=== PATIENT | female | born 1970 | race Caucasian/White ===

== ENCOUNTER 2022-01-15 08:06 | Emergency (ER) | payer SELFPAY ==
[~2022-01-15] VITALS: Ht 160 cm; Wt 55.0 kg
[2022-01-15 08:13] VITALS: BP 120/81
[2022-01-15] MEDS ORDERED: SUMATRIPTAN SUCCINATE 25MG TABLET PO ONE (08:45)
[2022-01-15] MEDS ORDERED: KETOROLAC 15MG/ML VIAL IM ONE (08:45)
[2022-01-15] MEDS ORDERED: DIPHENHYDRAMINE 50MG/ML VIAL IV ONE (10:45)
[2022-01-15] MEDS ORDERED: SODIUM CHLORIDE 0.9% 1,000 ML IV ONE (10:45)
[2022-01-15] MEDS ORDERED: METOCLOPRAMIDE HCL 10MG/2ML VIAL IV ONE (10:45)
== END 2022-01-15 12:29 | disposition home or self-care (01) ==
LOC: ER 08:06
DX: U07.1 COVID-19 (principal); R00.0 Tachycardia, unspecified
CPT/HCPCS: 70450; 81025; 87426; 87804; 96361; 96372; 96374; 96375; 99284; C9803; J1200; J1885; J2765; J7030

== ENCOUNTER 2023-02-22 13:24 | Emergency (ER) | payer BC, MEDICAID ==
[~2023-02-22] VITALS: Ht 160 cm; Wt 56.0 kg
[2023-02-22 13:51] VITALS: O2SAT 94
[2023-02-22 14:18] LABS: BASOPHILS % 0.5 % (0.0-2.0); EOSINOPHILS % 1.4 % (0.0-5.0); HEMOGLOBIN. 12.1 g/dL (12.0-16.0); LYMPHOCYTES % 12.1 % (20.0-50.0); MEAN CORPUSCULAR HEMOGLOBIN 29.3 pg (28.0-32.0); MEAN CORPUSCULAR VOLUME 89.6 fL (81.0-99.0); MEAN PLATELET VOLUME 9.9 fl (7.4-10.4); MONOCYTES % 4.8 % (2.0-8.0); NEUTROPHILS % 81.2 % (40.0-76.0); PLATELET 190 x1000/uL (130-400); RED BLOOD CELL COUNT 4.14 mill/uL (4.2-5.4); RED CELL DISTRIBUTION WIDTH 13.4 % (11.6-14.6)
[2023-02-22 14:26] LABS: CHLORIDE 114 mEq/L (98-107)
[2023-02-22] MEDS ORDERED: HYDROCODONE/ACETAMINOPHEN 10/325MG TABLET PO ONE (19:00)
[2023-02-22] MEDS ORDERED: TAMSULOSIN HCL 0.4MG SR CAPSULE PO ONE (19:00)
[2023-02-22] MEDS ORDERED: KETOROLAC 60MG/2ML VIAL IM ONE (19:00)
[2023-02-22] MEDS ORDERED: ACET-2708 MT (19:02)
[2023-02-22] MEDS ORDERED: TAMS-11 MT (19:02)
[2023-02-22] MEDS ORDERED: IBUP-2030 MT (19:02)
[2023-02-22] MEDS ORDERED: TAMSULOSIN HCL 0.4MG SR CAPSULE PO NR (19:45)
[2023-02-22 19:46] VITALS: BP 165/116
[2023-02-22 19:56] VITALS: PULSE 64; RESP 18; TEMP 98.9
[2023-02-22 20:02] LABS: CLARITY URINE CLEAR (CLEAR); COLOR URINE YELLOW (YELLOW); KETONES URINE 1+ (NEGATIVE); LEUKOCYTE ESTERASE URINE NEGATIVE (NEGATIVE); NITRITE URINE NEGATIVE (NEGATIVE); OCCULT BLOOD URINE NEGATIVE (NEGATIVE); PH URINE >=9.0 (4.5-8.0); PROTEIN URINE 2+ (NEGATIVE); SPECIFIC GRAVITY URINE 1.029 (1.005-1.030)
== END 2023-02-22 19:59 | disposition home or self-care (01) ==
LOC: ER 13:24
DX: N20.0 Calculus of kidney (principal); N13.30 Unspecified hydronephrosis
CPT/HCPCS: 80053; 81003; 81025; 85025; 36415; 74176; 96372; 99285; J1885; Z7610

== ENCOUNTER 2023-10-27 10:07 | Emergency (ER) | payer OTHER ==
[~2023-10-27] VITALS: Ht 160 cm; Wt 53.0 kg
[~2023-10-27 10:07] MED LIST: ACET-2708 MT; IBUP-2030 MT; TAMS-11 MT
[2023-10-27 10:11] VITALS: O2SAT 100
[2023-10-27 10:41] LABS: EOSINOPHILS % 1.3 % (0.0-5.0); HEMATOCRIT. 37.6 % (36.0-48.0); HEMOGLOBIN. 12.4 g/dL (12.0-16.0); LYMPHOCYTES % 18.2 % (20.0-50.0); MEAN CORPUSCULAR HEMOGLOBIN 29.5 pg (28.0-32.0); MEAN CORPUSCULAR HGB CONC 33.1 g/dL (31.0-37.0); MEAN CORPUSCULAR VOLUME 89.2 fL (81.0-99.0); MEAN PLATELET VOLUME 9.7 fl (7.4-10.4); MONOCYTES % 3.6 % (2.0-8.0); NEUTROPHILS % 75.9 % (40.0-76.0); PLATELET 214 x1000/uL (130-400); RED BLOOD CELL COUNT 4.22 mill/uL (4.2-5.4); RED CELL DISTRIBUTION WIDTH 13.3 % (11.6-14.6)
[2023-10-27 11:00] LABS: ALANINE AMINOTRANSFERASE 12 IU/L (10-49); ALBUMIN 4.6 g/dL (3.2-4.8); ASPARTATE AMINOTRANSFERASE 22 IU/L (<34); BILIRUBIN TOTAL 1.7 mg/dL (0.1-1.0); CALCIUM 8.9 mg/dL (8.7-10.4); CARBON DIOXIDE 18 mEq/L (21-32); CHLORIDE 98 mEq/L (98-107); CREATININE 0.9 mg/dL (0.6-1.0); GLUCOSE 99 mg/dL (70-105); POTASSIUM 3.8 mEq/L (3.5-5.1); PROTEIN TOTAL 7.2 g/dL (6.0-8.3); SODIUM 133 mEq/L (136-145); TROPONIN I HIGH SENSITIVITY 5 ng/L (3.0-34); UREA NITROGEN BLOOD 16 mg/dL (9-23)
[2023-10-27 14:22] VITALS: BP 112/68; PULSE 84; RESP 15; TEMP 98.2
== END 2023-10-27 14:30 | disposition home or self-care (01) ==
LOC: ER 10:07
DX: R00.2 Palpitations (principal); F12.10 Cannabis abuse, uncomplicated
CPT/HCPCS: 80053; 83880; 85025; 84484; 36415; 93005; 99284; Z7610 ×2